=== PATIENT | female | born 1965 | race Caucasian/White ===

== ENCOUNTER 2020-01-06 08:21 | Outpatient (CLI) | payer OTHER, SELFPAY ==
--- NOTE | 2020-01-06 08:24 | ECG_ITS ---
Measurements Intervals [place] Rate: 58 P: 66 MD: 141 QRS: 52 QRSD: 93 T: 38 QT: 386 QTc: 379 Interpretive Statements SINUS BRADYCARDIA POSSIBLE LEFT ATRIAL ENLARGEMENT INCOMPLETE RIGHT BUNDLE BRANCH BLOCK DELAYED PRECORDIAL R/S TRANSITION BASELINE ARTIFACT- I, III, AVR, AVL, AVF BORDERLINE ECG Electronically Signed On 01-06-2020 9:06:42 [employer] by Cl Fitzgerald D.O.
[2020-01-06 10:03] LABS: Prothrombin Time 13.7 Seconds (11.1-14.7)
[2020-01-06 10:04] LABS: Partial Thromboplastin Time 30.5 SECONDS (22.3-36.8)
== END 2020-01-06 08:22 | disposition home or self-care (01) ==
PROVIDERS: PCP Physician Assistant; Visit Provider Urology
DX: E78.00 Pure hypercholesterolemia, unspecified (principal); N20.0 Calculus of kidney; Z01.818 Encounter for other preprocedural examination; I45.10 Unspecified right bundle-branch block
CPT/HCPCS: 36415; 85610; 85730; 87086; 93005

== ENCOUNTER 2020-01-10 02:54 | Outpatient (CLI) | payer OTHER, SELFPAY ==
[2020-01-10 19:47] LABS: SARS-CoV-2 RNA PCR Negative
== END 2020-01-10 02:55 | disposition home or self-care (01) ==
LOC: ANHCOVIDDT 02:54
PROVIDERS: Visit Provider Urology
DX: Z01.812 Encounter for preprocedural laboratory examination (principal); Z20.828 Contact with and (suspected) exposure to other viral communicable diseases
CPT/HCPCS: 87635; C9803; U0003

== ENCOUNTER 2020-01-13 04:31 | Day surgery (SDC) | payer OTHER, SELFPAY ==
[2020-01-02 19:03] VITALS: BMI 20.2
--- NOTE | 2020-01-08 13:36 | PM.IMHP ---
H&P: HPI History of Present Illness Date/Time: 01/08/20 13:36 Chief complaint: Stress Incontinence Narrative: Jessica Swift is a 54 year old female with JORDAN and Left renal stones Review of Systems Review of Systems: All systems reviewed & are unremarkable except as noted in HPI and below PMFSH Social History Social History Smoking status: Never smoker Alcohol intake: current Drinks per week: 3 Substance use: never Spiritual care concerns: No Meds Home Medications and Allergies Home Medications Medication Instructions Recorded Confirmed Type Adult One Daily Multivitamin 1 caplet PO DAILY 01/02/20 01/02/20 History xbepqrdh-hojghrz-fxo-Zn salts 1 cap PO DAILY 01/02/20 01/02/20 History ascorbic acid (vitamin C) [Vitamin 500 mg PO DAILY 01/02/20 01/02/20 History C] iron 65 tablet PO DAILY 01/02/20 01/02/20 History omega 1-xgp-tdu-fish oil [Fish Oil] 1,200 cap PO DAILY 01/02/20 01/02/20 History rosuvastatin 5 mg PO HS 01/02/20 01/02/20 History Allergies Allergy/AdvReac Type Severity Reaction Status Date / Time Penicillins Allergy Intermediate Unknown Verified 01/02/20 18:38 Exam Const: General: cooperative and healthy appearing HENMT: Head: normal to inspection Eyes: General: appearance normal, both eyes and all related structures Neck: Neck: normal visual inspection GI: Inspection: normal to inspection Skin: General skin exam: normal color Neuro: General: oriented to person Assessment and Plan Assessment and plan (1) JORDAN (stress urinary incontinence, female): Code(s): N39.3 - Stress incontinence (female) (male) Status: Acute Assessment and Plan: urethral sling (2) Left renal stone: Code(s): N20.0 - Calculus of kidney Status: Acute Assessment and Plan: ESWL
[2020-01-13] VITALS (8 sets, daily range): BP systolic 99–156; BP diastolic 54–85; PULSE 53–70; RESP 10–20; TEMP 36.4; O2SAT 100
--- NOTE | ~2020-01-13 | XR_ITS ---
EXAMINATION: XR abdomen/kub 1V DATE: 01/13/2020 10:06 INDICATION: Kidney stone. TECHNIQUE: A supine view of the abdomen was obtained. COMPARISON: None. FINDINGS: There are no dilated loops of bowel. There is a 9 mm stone or cluster of stones in left kid joanna lower pole. There are calcifications in the pelvis measuring up to 2 mm. IMPRESSION: 1. 9 mm stone versus cluster of stones in left kidney lower pole. 2. Calcifications in the pelvis measuring up to 2 mm, which may be phleboliths and/or distal ureteral stones on either side. Reviewed, dictated and finalized at location A. [facility]
--- NOTE | 2020-01-13 07:13 | WPDHPUPDATE1 ---
History and Physical Update Update Date/Time: 01/13/20 07:13 History and Physical has been reviewed, including an updated exam of the patient. There are NO changes in the patient's condition. Risks, benefits, and alternatives have been discussed and questions answered. Patient agrees to proceed with procedure.
--- NOTE | 2020-01-13 10:30 | WPDANESEPPF ---
Anes - Initial Pre Proc Eval Procedure: Operation Date: 01/13/20 12:00 Proposed Procedures p Urethral Sling - Raffi Shen MD s Left Extracorporeal Shock Wave Lithotripsy - Raffi Shen MD Date/Time: 01/13/20 10:30 Surgeon: Raffi Shen MD Pre Op Diagnosis: Stress Incontinence Patient Data Age: 54 Gender: F Height: 1.68 m Weight: 64.4 kg Allergies Allergy/AdvReac Type Severity Reaction Status Date / Time Penicillins Allergy Intermediate Unknown Verified 01/13/20 10:25 Home Medications Medication Instructions Recorded Confirmed Type Adult One Daily Multivitamin 1 caplet PO DAILY 01/02/20 01/13/20 History kjnydoke-kjjudyp-tst-Zn salts 1 cap PO DAILY 01/02/20 01/13/20 History ascorbic acid (vitamin C) [Vitamin 500 mg PO DAILY 01/02/20 01/13/20 History C] iron 65 tablet PO DAILY 01/02/20 01/13/20 History omega 2-miy-sll-fish oil [Fish Oil] 1,200 cap PO DAILY 01/02/20 01/13/20 History rosuvastatin 5 mg PO HS 01/02/20 01/13/20 History Patient hx anesthesia problems: none Family hx anesthesia problems: none [facility] Past Medical History Medical History (Updated 01/13/20 @ 10:28 by Isiah Juarez DO) Hyperlipidemia Renal stones Social History Social History Smoking status: Never smoker Alcohol intake: current Drinks per week: 3 Substance use: never Living arrangements: with family Spiritual care concerns: No Anes - Eval Final PreProcedure Day of Procedure 01/13/20 10:30 Patient weight: normal Heart: regular rate and rhythm Lungs: clear to auscultation and normal air movement Airway: Mallampati scale class II Neurological: alert and oriented Last oral intake: >/= 8 hours ASA classification: II Emergent: no Anesthetic plan: proceed Anesthesia type and monitoring: general LMA and standard monitoring Informed Consent: The patient's anesthetic plan and its attendant risks and benefits were discussed with the patient/family/POA. Questions were solicited and answers provided to the satisfaction of the patient/family/POA.
[2020-01-13] MEDS: LACTATED RINGERS 1,000 ML 30 ML IV CONT ×2 (10:39→14:00)
[2020-01-13] MEDS: levoFLOXacin 500 MG/D5W 100 ML 500 MG/100 ML BAG 100 MG IVPB (12:55)
--- NOTE | 2020-01-13 13:10 | P.OP_ITS ---
Procedure Note - Detailed Date of procedure: 01/13/20 Pre-op diagnosis: Stress Incontinence Stress urinary incontinence Left renal stone Post-op diagnosis: same Procedure performed: Transobturator Mid-urethral sling Cystoscopy Left extracorporeal shockwave lithotripsy Description of procedure: Anesthesia: General This is a patient with confirmed stress urinary incontinence. She desires correction. She understands the risks of bleeding, infection, damage to the urinary tract, lack of cure of stress incontinence, recurrence of stress incontinence, postoperative voiding dysfunction including incontinence and re tention, need for ancillary procedures to loosen remove the sling, postoperative voiding dysfunction including retention and overactive bladder, hip and leg pain, dyspareunia, mesh related complications including exposure and extrusion. She agrees to proceed. She understands it will not help overactive bladder symptoms if present. She was correctly identified and informed consent obtained. She is brought to the operating room. She was given appropriate anesthesia. She was placed in the dorsal lithotomy position. All pressure points were padded. She was given appropriate perioperative antibiotics and a time-out performed. A Boland catheter is placed. I marked out the thigh incisions anesthetize the skin and made those incisions. I anesthetized the anterior vaginal wall over the mid urethra. I made a 1 cm incision. I dissected out laterally taking great care not to injure the urethra or the vaginal wall. Passed the helical trocars 1st on the left and then on the right from the thigh incision towards the vaginal incision. Sling was connected to the trocars and brought out through the thigh incision. I tensioned the sling appropriately. I cut and removed the plastic sheaths. I closed the incision with 2 0 Vicryl. I then performed cystoscopy. There was no surgical artifact or abnormalities inside the bladder. The urethra was normal without surgical artifact. I cut the excess sling material. I closed the incisions with glue. As for the lithotripsy. The stone was targeted fluoroscopy. It was easily seen. The lithotripsy was delivered. We delivered 2500 shocks at a power level of 3. There appeared to be excellent fragmentation of the stone. She was awakened and transferred to the PACU in stable condition. Implants: Mid urethral sling Surgeon: Raffi Shen MD Drains: No Packing: No Pathology: none sent Complications: No immediate complications Condition: stable Disposition: PACU
== END 2020-01-13 14:57 | disposition home or self-care (01) ==
PROVIDERS: Visit Provider Urology
PROC: (CPT 57288; principal; 2020-01-13 12:00)
PROC: (CPT 50590; 2020-01-13 12:00)
DX: N39.3 Stress incontinence (female) (male) (principal); N20.0 Calculus of kidney; E78.5 Hyperlipidemia, unspecified
CPT/HCPCS: 57288; 50590; 36415; 74018; 85610; 85730; 87086; 87635; 93005; A9270; C1771; C9803; J1100; J1956; J2250; J2405; J2704; J3010; J7120; U0003